=== PATIENT | female | born 2000 | race Hispanic/Latino ===

== ENCOUNTER 2024-06-02 22:47 | Emergency (ER) | payer SELFPAY, OTHER ==
[2024-06-02] MEDS ORDERED: FAMOTIDINE 20 MG/2 ML VIAL IV ONE (23:11)
[2024-06-02] MEDS ORDERED: DIPHENHYDRAMINE 50 MG/ML VIAL ONE (23:11)
[2024-06-02] MEDS ORDERED: METHYLPREDNISOLONE 125 MG INJ ONE (23:11)
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
[2024-06-03 00:49] VITALS: TEMP 98.3; O2SAT 100
[2024-06-03 00:50] VITALS: BP 153/91
== END 2024-06-03 00:22 | disposition home or self-care (01) ==
LOC: ER 22:47
DX: R51.9 Headache, unspecified (principal); V49.40XA Driver injured in collision with unspecified motor vehicles in traffic accident, initial encounter
CPT/HCPCS: 99283; J1200; J2919